=== PATIENT | male | born 1965 | race Two or more races ===

== ENCOUNTER 2018-06-12 22:02 | Emergency (ER) | payer MEDICAID ==
[~2018-06-12] VITALS: Ht 165.1 cm; Wt 59.0 kg
[2018-06-12 22:12] VITALS: BP_SYST 137
[2018-06-12 23:52] LABS: HEMATOCRIT 33.6 % (36-54); HEMOGLOBIN 11.1 g/dL (14.0-18.0); LYMPHOCYTES % (AUTO) 43.2 % (20.5-51.5); MEAN CORPUSCULAR HEMOGLOBIN 26 pg (27-31); MEAN CORPUSCULAR HGB CONC 33 % (32-36); MEAN CORPUSCULAR VOLUME 78 fL (79.0-98.0); MONOCYTES % (AUTO) 10.2 % (1.7-9.3); NEUTROPHILS % (AUTO) 42.3 % (40.0-70.0); PLATELET COUNT (AUTO) 168 K/uL (130-430); RED BLOOD CELL COUNT(AUTO) 4.32 MIL/uL (4.2-6.2); RED CELL DISTRIBUTION WIDTH 13.5 % (9.0-15.0); WHITE BLOOD COUNT (AUTO) 4.8 K/uL (4.8-10.8)
[2018-06-12 23:53] LABS: BASOPHILS % (AUTO) 0.9 % (0.0-2.0); EOSINOPHILS # (AUTO) 0.2 K/uL (0.0-0.4); EOSINOPHILS % (AUTO) 3.4 % (0.0-4.0); LYMPHOCYTES # (AUTO) 2.1 K/uL (1.0-5.5); MONOCYTES # (AUTO) 0.5 K/uL (0.0-1.0)
[2018-06-12 23:56] LABS: ANION GAP 12 (5-15); CALCIUM 9.1 mg/dL (8.4-11.0); CHLORIDE 106 mmol/L (98-107); CREATININE 2.06 mg/dL (0.55-1.30); GLUCOSE 77 mg/dL (70-99); POTASSIUM 4.4 mmol/L (3.5-5.1); SODIUM SERUM 140 mmol/L (136-145); UREA NITROGEN, BLOOD 50 mg/dL (8-21)
[2018-06-12 23:57] LABS: GFR AFRICAN AMERICAN 44 mL/min (>90)
[2018-06-13 00:05] LABS: ALANINE AMINOTRANSFERASE 33 U/L (12-78); ALBUMIN 3.7 g/dL (3.4-4.8); ASPARTATE AMINOTRANSFERASE 29 U/L (10-37); TOTAL BILIRUBIN 0.3 mg/dL (0.0-1.0)
[2018-06-13 00:06] LABS: ACETAMINOPHEN < 1 ug/mL (1-30); ALCOHOL, BLOOD < 3 mg/dL (<10)
[2018-06-13] MEDS ORDERED: NACL 0.9% 1,000 ML IV ONE (01:00)
[2018-06-13 02:00] VITALS: BP_SYST 126
== END 2018-06-13 02:00 | disposition home or self-care (01) ==
LOC: SED 22:02
DX: N28.9 Disorder of kidney and ureter, unspecified (principal); R53.1 Weakness; Z88.0 Allergy status to penicillin
CPT/HCPCS: 36415; 80053; 84484; 85025; 93005; 99284; G0480; G0481; G0482; J7030 ×2

== ENCOUNTER 2021-10-19 21:23 | Emergency (ER) | payer MEDICAID ==
[~2021-10-19] VITALS: Ht 165.1 cm; Wt 61.2 kg
[2021-10-19 21:30] VITALS: BP_SYST 173
--- NOTE | 2021-10-19 21:30 | NUR ---
Patient triaged and placed in waiting room. VSS and patient appears in no acute distress at this time. Accompanied by fam member, awaiting available bed, and MD notified of need for MSE.
--- NOTE | 2021-10-19 22:17 | NUR ---
ER examining patient in the triage room.
[2021-10-19] MEDS ORDERED: KETOROLAC TROMETHAMINE 60 MG/2 ML VIAL IM ONE (22:30)
[2021-10-19] MEDS ORDERED: IBUP-1969 PO (22:41)
[2021-10-19] MEDS ORDERED: CYCL10TA24 PO (22:41)
[2021-10-19] MEDS ORDERED: ACET-2634 PO (22:41)
--- NOTE | 2021-10-19 23:40 | NUR ---
Patient given written and verbal discharge instructions and verbalizes understanding. ER MD discussed with patient the results and treatment provided. Patient in stable condition. ID arm band removed. Rx of Tylenol xtra strenght,Flexeril given. Patient educated on pain management and to follow up with PMD. Pain Scale 4/10. Opportunity for questions provided and answered. Medication side effect fact sheet provided.
[2021-10-19 23:45] VITALS: BP_SYST 165
== END 2021-10-19 23:45 | disposition home or self-care (01) ==
LOC: SED 21:23
DX: M54.50 Low back pain, unspecified (principal); Z88.0 Allergy status to penicillin; Z79.899 Other long term (current) drug therapy
CPT/HCPCS: 99283; 96372; J1885

== ENCOUNTER 2022-11-16 21:00 | Emergency (ER) | payer MEDICAID ==
[~2022-11-16] VITALS: Ht 165.1 cm; Wt 63.5 kg
[~2022-11-16 21:00] MED LIST: ACET-2634 PO; CYCL10TA24 PO; IBUP-1969 PO
[2022-11-16 21:06] VITALS: BP_SYST 136; PULSE 66; RESP 16; TEMP 97.6; O2SAT 99
[2022-11-17] MEDS ORDERED: KETOROLAC TROMETHAMINE 30 MG VIAL IM ONE (00:30)
[2022-11-17 01:00] VITALS: BP_SYST 136; PULSE 66; RESP 16; TEMP 97.6; O2SAT 99
[2022-11-17] MEDS ORDERED: IBUP-1969 PO (01:06)
[2022-11-17] MEDS ORDERED: LIDO1ADH63 TP (01:06)
== END 2022-11-17 01:00 | disposition home or self-care (01) ==
LOC: SED 21:00
DX: G89.29 Other chronic pain (principal); M54.50 Low back pain, unspecified; Z88.0 Allergy status to penicillin; Z79.899 Other long term (current) drug therapy
CPT/HCPCS: 99283; 96372; J1885